=== PATIENT | male | born 1985 | race Hispanic/Latino ===

== ENCOUNTER 2020-03-11 14:40 | Emergency (ER) | payer OTHER ==
[2020-03-11] MEDS ORDERED: LIDOCAINE HCL-MPF 1% 2ML VIAL ONE (14:55)
[2020-03-11] MEDS ORDERED: CEFTRIAXONE SODIUM 1 GM ONE (14:55)
[2020-03-11] MEDS ORDERED: AZITHROMYCIN 250 MG TABLET PO ONE (14:55)
[2020-03-11 15:08] LABS: APPEARANCE,URINE Clear (CLEAR); BILIRUBIN,URINE Negative (NEGATIVE); COLOR,URINE Yellow (YELLOW); GLUCOSE, URINE (UA) Negative (NEGATIVE); KETONES,URINE Negative (NEGATIVE); LEUKOCYTE ESTERASE ,URINE Moderate (NEGATIVE); NITRATE,URINE Negative (NEGATIVE); OCCULT BLOOD,URINE Negative (NEGATIVE); PH,URINE 7.5 (5.0-8.0); PROTEIN,URINE Negative (NEGATIVE)
[2020-03-11 15:32] LABS: BACTERIA,URINE Few /HPF (None Seen); MUCUS,URINE Few LPF (None Seen); SQUAMOUS EPITHELIAL CELL,UR Few /HPF (0-2); WBC,URINE 26-50 /HPF (0-1)
== END 2020-03-11 15:45 | disposition home or self-care (01) ==
LOC: EDH 14:40
DX: Z20.2 Contact with and (suspected) exposure to infections with a predominantly sexual mode of transmission (principal); J02.9 Acute pharyngitis, unspecified
CPT/HCPCS: 81001; 87088; 87486; 87797; 96372; 99283; J0696; J3490

== ENCOUNTER 2020-04-29 16:47 | Emergency (ER) | payer OTHER ==
[2020-04-29 17:20] LABS: BASOPHILS % (AUTO) 0.5 % (0.0-5.0); EOSINOPHILS % (AUTO) 3.6 % (0.0-8.0); HEMATOCRIT 49.2 % (42-54); LYMPHOCYTES % (AUTO) 34.1 % (21.0-51.0); MEAN CORPUSCULAR HEMOGLOBIN 29.6 pg (27.0-33.0); MEAN CORPUSCULAR HGB CONC 34.8 g/dL (32.0-36.0); MEAN CORPUSCULAR VOLUME 85.3 fL (79-99); MONOCYTES % (AUTO) 7.8 % (3.0-13.0); NEUTROPHILS % (AUTO) 53.7 % (40.0-77.0); PLATELET COUNT (AUTO) 211 K/uL (130-400); RED BLOOD CELL COUNT(AUTO) 5.77 MIL/uL (4.50-6.20); RED CELL DISTRIBUTION WIDTH 12.2 % (11.0-15.5); WHITE BLOOD COUNT (AUTO) 6.6 K/uL (4.8-10.8)
[2020-04-29 17:21] LABS: APPEARANCE,URINE Clear (CLEAR); BILIRUBIN,URINE Negative (NEGATIVE); COLOR,URINE Yellow (YELLOW); GLUCOSE, URINE (UA) Negative (NEGATIVE); KETONES,URINE Trace mg/dL (NEGATIVE); LEUKOCYTE ESTERASE ,URINE Negative (NEGATIVE); NITRATE,URINE Negative (NEGATIVE); OCCULT BLOOD,URINE Negative (NEGATIVE); PH,URINE 5.5 (5.0-8.0); PROTEIN,URINE Negative (NEGATIVE)
[2020-04-29 17:33] LABS: BACTERIA,URINE None Seen /HPF (None Seen); RBC,URINE 0-1 /HPF (0-1); WBC,URINE 0-1 /HPF (0-1)
[2020-04-29 17:34] LABS: SQUAMOUS EPITHELIAL CELL,UR 0-2 /HPF (0-2)
[2020-04-29 17:35] LABS: CREATININE 1.1 mg/dL (0.5-1.5); POTASSIUM 3.5 mmol/L (3.5-5.1)
[2020-04-29 17:40] LABS: ALBUMIN 3.9 g/dL (3.5-5.0); BILIRUBIN,TOTAL 0.4 mg/dL (0.2-1.0); TOTAL PROTEIN, SERUM 7.4 g/dL (6.0-8.3)
== END 2020-04-29 20:52 | disposition home or self-care (01) ==
LOC: EDH 16:47
DX: K40.90 Unilateral inguinal hernia, without obstruction or gangrene, not specified as recurrent (principal); H10.9 Unspecified conjunctivitis; F14.10 Cocaine abuse, uncomplicated
CPT/HCPCS: 36415; 80053; 81001; 85025

== ENCOUNTER 2020-06-08 19:45 | Emergency (ER) | payer SELFPAY ==
[2020-06-08] MEDS ORDERED: HYDROCODONE/ACETAMINOPHEN 10/325 MG TAB ONE (20:07)
[2020-06-08 20:16] LABS: BASOPHILS % (AUTO) 0.4 % (0.0-5.0); EOSINOPHILS % (AUTO) 3.6 % (0.0-8.0); HEMATOCRIT 44.8 % (42-54); LYMPHOCYTES % (AUTO) 26.2 % (21.0-51.0); MEAN CORPUSCULAR HEMOGLOBIN 29.4 pg (27.0-33.0); MEAN CORPUSCULAR HGB CONC 35.5 g/dL (32.0-36.0); MEAN CORPUSCULAR VOLUME 82.8 fL (79-99); MONOCYTES % (AUTO) 9.1 % (3.0-13.0); NEUTROPHILS % (AUTO) 60.4 % (40.0-77.0); PLATELET COUNT (AUTO) 188 K/uL (130-400); RED BLOOD CELL COUNT(AUTO) 5.41 MIL/uL (4.50-6.20); RED CELL DISTRIBUTION WIDTH 12.2 % (11.0-15.5); WHITE BLOOD COUNT (AUTO) 7.5 K/uL (4.8-10.8)
[2020-06-08 20:32] LABS: CREATININE 0.9 mg/dL (0.5-1.5); POTASSIUM 3.9 mmol/L (3.5-5.1)
[2020-06-08 20:36] LABS: ALBUMIN 3.7 g/dL (3.5-5.0); BILIRUBIN,TOTAL 0.5 mg/dL (0.2-1.0); TOTAL PROTEIN, SERUM 6.7 g/dL (6.0-8.3)
== END 2020-06-08 21:06 | disposition home or self-care (01) ==
LOC: EDH 19:45
DX: S39.011A Strain of muscle, fascia and tendon of abdomen, initial encounter (principal); X58.XXXA Exposure to other specified factors, initial encounter; Y93.89 Activity, other specified; Y92.89 Other specified places as the place of occurrence of the external cause; Y99.8 Other external cause status
CPT/HCPCS: 36415; 80053; 83690; 85025

== ENCOUNTER 2022-02-15 00:13 | Emergency (ER) | payer OTHER ==
[~2022-02-15] VITALS: Ht 188 cm; Wt 92.5 kg
[2022-02-15 00:33] VITALS: BP 120/72
[2022-02-15] MEDS ORDERED: DOXY-469 PO (00:46)
[2022-02-15] MEDS ORDERED: CEFTRIAXONE 500MG VIAL IM SCH (01:00)
[2022-02-15] MEDS ORDERED: DOXYCYCLINE HYCLATE 100 MG TABLET PO SCH (01:00)
[2022-02-15 02:00] LABS: RAPID PLASMA REAGIN NONREACTIVE (NONREACTIVE)
== END 2022-02-15 01:17 | disposition home or self-care (01) ==
LOC: EDH 00:13
DX: A56.01 Chlamydial cystitis and urethritis (principal); N34.2 Other urethritis
CPT/HCPCS: 99283; 86592; 86701; 87390; 36415; 96372; J0696

== ENCOUNTER 2022-10-27 19:46 | Emergency (ER) | payer OTHER ==
[~2022-10-27] VITALS: Ht 188 cm; Wt 93.4 kg
[~2022-10-27 19:46] MED LIST: DOXY-469 PO
[2022-10-27 19:47] VITALS: BP 135/79; PULSE 90; RESP 18
[2022-10-27] MEDS ORDERED: CEFTRIAXONE 500MG VIAL IM SCH (23:00)
[2022-10-27] MEDS ORDERED: LIDOCAINE HCL 1% 20 ML VIAL ONE (23:05)
[2022-10-27] MEDS ORDERED: DOXY-252 PO (23:54)
[2022-10-28] MEDS ORDERED: AZITHROMYCIN 250 MG TABLET PO ONE
[2022-10-28 00:01] LABS: APPEARANCE,URINE CLOUDY (CLEAR); BILIRUBIN,URINE NEGATIVE (NEGATIVE); COLOR,URINE YELLOW (YELLOW); GLUCOSE, URINE (UA) NEGATIVE (NEGATIVE); KETONES,URINE NEGATIVE (NEGATIVE); LEUKOCYTE ESTERASE ,URINE NEGATIVE Leu/uL (NEGATIVE); NITRATE,URINE NEGATIVE (NEGATIVE); OCCULT BLOOD,URINE NEGATIVE (NEGATIVE); PROTEIN,URINE 20 mg/dL (NEGATIVE); UROBILINOGEN,URINE 0.2 mg/dL (0.2-1.0)
[2022-10-28 00:08] LABS: MUCUS,URINE RARE LPF (None Seen); RBC,URINE 0-1 /HPF (0-1)
== END 2022-10-28 00:08 | disposition home or self-care (01) ==
LOC: EDH 19:46
DX: N34.2 Other urethritis (principal); Z79.899 Other long term (current) drug therapy
CPT/HCPCS: 99283; 87797; 87486; 81001; 96372; J0696